=== PATIENT | male | born 1990 | race Caucasian/White ===

== ENCOUNTER 2019-04-21 19:11 | Emergency (ER) | payer OTHER ==
[~2019-04-21] VITALS: Ht 170.2 cm; Wt 66.0 kg
--- NOTE | 2019-04-21 20:16 | NUR ---
PT RESTING IN ROOM. NO ACUTE DISTRESS NOTED. WILL CONTINUE TO MONITOR.
[2019-04-21 20:27] VITALS: BP 126/73
--- NOTE | 2019-04-21 20:36 | NUR ---
DR SHAH HAS UPDATED PATIENT.
== END 2019-04-21 21:05 | disposition home or self-care (01) ==
LOC: ED 20:59
DX: S06.0X1A Concussion with loss of consciousness of 30 minutes or less, initial encounter (principal); S40.211A Abrasion of right shoulder, initial encounter; S80.812A Abrasion, left lower leg, initial encounter; V87.8XXA Person injured in other specified noncollision transport accidents involving motor vehicle (traffic), initial encounter; Y93.89 Activity, other specified; Y92.828 Other wilderness area as the place of occurrence of the external cause; Y99.8 Other external cause status
CPT/HCPCS: 99282